=== PATIENT | male | born 1985 | race Hispanic/Latino ===

== ENCOUNTER 2017-10-17 12:27 | Emergency (ER) | payer OTHER | END 2017-10-17 15:36 | disposition home or self-care (01) | LOC: M ED 12:27 | DX: S61.213A Laceration without foreign body of left middle finger without damage to nail, initial encounter (principal); W26.0XXA Contact with knife, initial encounter; Y92.89 Other specified places as the place of occurrence of the external cause | CPT/HCPCS: 12001 ==